=== PATIENT | female | born 1995 | race Caucasian/White ===

== ENCOUNTER → 2022-06-23 | Outpatient (REF) | LOC: M LABSMTC 11:28 | PROVIDERS: ATTEND Family Medicine | DX: Z20.822 Contact with and (suspected) exposure to COVID-19 (principal) ==

== ENCOUNTER → 2022-06-26 | Outpatient (REF) | LOC: M LABSMTC 10:39 | PROVIDERS: ATTEND Family Medicine | DX: Z11.52 Encounter for screening for COVID-19 (principal) ==

== ENCOUNTER → 2022-11-09 | Outpatient (REF) | LOC: M LABSMTC 08:41 | PROVIDERS: ATTEND Family Medicine | DX: Z11.52 Encounter for screening for COVID-19 (principal) ==

== ENCOUNTER → 2023-11-09 | Outpatient (CLI) | payer OTHER ==
[2023-11-09 17:25] LABS: FREE T4 1.12 NG/DL (0.89-1.76); THYROID STIMULATING HORMONE 1.29 uIU/ML (0.55-4.78)
== END ==
LOC: M LAB 16:19
PROVIDERS: ATTEND Nurse Practitioner Adult Health
DX: E03.9 Hypothyroidism, unspecified (principal)

== ENCOUNTER → 2024-02-23 | Outpatient (CLI) | payer OTHER ==
[2024-02-23 18:25] LABS: HEMATOCRIT 34.8 % (36.0-47.0); HEMOGLOBIN 12.1 g/dl (12.0-15.5); MEAN CORPUSCULAR HEMOGLOBIN 31.2 pg (27.0-33.0); MEAN CORPUSCULAR HGB CONC 34.8 g/dl (32.0-36.5); MEAN CORPUSCULAR VOLUME 89.7 fl (80.0-96.0); PLATELET COUNT, AUTOMATED 290 10^3/uL (150-450); RED BLOOD COUNT 3.88 10^6/uL (4.00-5.40); WHITE BLOOD COUNT 13.1 10^3/uL (4.0-10.0)
[2024-02-23 18:54] LABS: FREE T4 1.08 NG/DL (0.89-1.76)
[2024-02-23 18:55] LABS: THYROID STIMULATING HORMONE 2.676 uIU/ML (0.55-4.78)
[2024-02-23 19:19] LABS: HIV 1&2 SCREEN NEGATIVE (NEGATIVE)
[2024-02-23 19:28] LABS: HEPATITIS C VIRUS ABY INDEX < 0.02 INDEX (<0.8)
[2024-02-23 21:03] LABS: GC DNA AMPLIFICATION NEGATIVE (NEGATIVE)
== END ==
LOC: M PLALAB 15:09
PROVIDERS: ATTEND Advanced Practice Midwife
DX: O99.280 Endocrine, nutritional and metabolic diseases complicating pregnancy, unspecified trimester (principal); Z3A.00 Weeks of gestation of pregnancy not specified

== ENCOUNTER → 2024-04-03 | Outpatient (CLI) | payer OTHER ==
[2024-04-03 12:53] LABS: FREE T4 0.96 NG/DL (0.89-1.76); THYROID STIMULATING HORMONE 3.602 uIU/ML (0.55-4.78)
== END ==
LOC: M PLALAB 09:52
PROVIDERS: ATTEND Obstetrics & Gynecology
DX: Z34.82 Encounter for supervision of other normal pregnancy, second trimester (principal); Z3A.00 Weeks of gestation of pregnancy not specified

== ENCOUNTER → 2024-05-01 | Outpatient (CLI) | payer OTHER ==
[2024-05-01 18:26] LABS: FREE T4 0.99 NG/DL (0.89-1.76); THYROID STIMULATING HORMONE 3.182 uIU/ML (0.55-4.78)
== END ==
LOC: M PLALAB 15:36
PROVIDERS: ATTEND Obstetrics & Gynecology
DX: O99.282 Endocrine, nutritional and metabolic diseases complicating pregnancy, second trimester (principal)

== ENCOUNTER → 2024-05-03 | Outpatient (CLI) | payer OTHER | LOC: M WHC 14:38 | PROVIDERS: ATTEND Obstetrics & Gynecology | DX: Z34.82 Encounter for supervision of other normal pregnancy, second trimester (principal) ==

== ENCOUNTER → 2024-06-07 | Outpatient (CLI) | payer OTHER ==
[2024-06-07 13:50] LABS: HEMATOCRIT 33.1 % (36.0-47.0); MEAN CORPUSCULAR HEMOGLOBIN 30.5 pg (27.0-33.0); MEAN CORPUSCULAR HGB CONC 33.2 g/dl (32.0-36.5); MEAN CORPUSCULAR VOLUME 91.7 fl (80.0-96.0); PLATELET COUNT, AUTOMATED 246 10^3/uL (150-450); RED BLOOD COUNT 3.61 10^6/uL (4.00-5.40); WHITE BLOOD COUNT 14.1 10^3/uL (4.0-10.0)
[2024-06-07 13:55] LABS: GLUCOSE CHALLENGE TEST 1 HOUR 107 MG/DL (LESS THAN 140)
[2024-06-07 13:59] LABS: THYROID STIMULATING HORMONE 3.207 uIU/ML (0.55-4.78)
[2024-06-07 14:00] LABS: FREE T4 1.04 NG/DL (0.89-1.76)
[2024-06-07 14:30] LABS: HIV 1&2 SCREEN NEGATIVE (NEGATIVE)
[2024-06-07 14:38] LABS: HEPATITIS C VIRUS ABY INDEX < 0.02 INDEX (<0.8)
[2024-06-07 15:20] LABS: GC DNA AMPLIFICATION NEGATIVE (NEGATIVE)
== END ==
LOC: M PLALAB 10:00
PROVIDERS: ATTEND Obstetrics & Gynecology
DX: O99.282 Endocrine, nutritional and metabolic diseases complicating pregnancy, second trimester (principal); Z3A.25 25 weeks gestation of pregnancy; E03.9 Hypothyroidism, unspecified

== ENCOUNTER → 2024-07-05 | Outpatient (CLI) | payer OTHER | LOC: M RAD 15:08 | PROVIDERS: ATTEND Obstetrics & Gynecology | DX: O13.3 Gestational [pregnancy-induced] hypertension without significant proteinuria, third trimester (principal); Z3A.30 30 weeks gestation of pregnancy ==

== ENCOUNTER → 2024-07-05 | Outpatient (CLI) | payer OTHER ==
[2024-07-05 16:29] LABS: HEMATOCRIT 31.2 % (36.0-47.0); HEMOGLOBIN 10.6 g/dl (12.0-15.5); MEAN CORPUSCULAR HEMOGLOBIN 30.5 pg (27.0-33.0); MEAN CORPUSCULAR VOLUME 89.7 fl (80.0-96.0); PLATELET COUNT, AUTOMATED 233 10^3/uL (150-450); RED BLOOD COUNT 3.48 10^6/uL (4.00-5.40); WHITE BLOOD COUNT 13.2 10^3/uL (4.0-10.0)
[2024-07-05 16:58] LABS: FREE T4 0.96 NG/DL (0.89-1.76); THYROID STIMULATING HORMONE 2.16 uIU/ML (0.55-4.78)
== END ==
LOC: M LAB 15:45
PROVIDERS: ATTEND Obstetrics & Gynecology
DX: O99.280 Endocrine, nutritional and metabolic diseases complicating pregnancy, unspecified trimester (principal); E03.9 Hypothyroidism, unspecified; Z3A.00 Weeks of gestation of pregnancy not specified

== ENCOUNTER → 2024-07-09 | Outpatient (CLI) | payer OTHER | LOC: M PLALAB 15:55 | PROVIDERS: ATTEND Obstetrics & Gynecology | DX: O99.019 Anemia complicating pregnancy, unspecified trimester (principal); Z3A.00 Weeks of gestation of pregnancy not specified; D64.9 Anemia, unspecified ==

== ENCOUNTER → 2024-08-02 | Outpatient (CLI) | payer OTHER | LOC: M WHC 07:54 | PROVIDERS: ATTEND Obstetrics & Gynecology | DX: O13.3 Gestational [pregnancy-induced] hypertension without significant proteinuria, third trimester (principal); Z3A.34 34 weeks gestation of pregnancy ==

== ENCOUNTER → 2024-08-13 | Outpatient (REF) | payer OTHER | LOC: M SFHCWAGY 17:06 | PROVIDERS: ATTEND Obstetrics & Gynecology | DX: Z36.85 Encounter for antenatal screening for Streptococcus B (principal); Z3A.35 35 weeks gestation of pregnancy ==

== ENCOUNTER 2024-08-19 10:43 | Inpatient (IN) | payer OTHER ==
[2024-08-19] VITALS (7 sets, daily range): BP systolic 113–140; BP diastolic 64–84
[~2024-08-19] VITALS: Ht 157.5 cm; Wt 86.5 kg
[2024-08-19] MEDS ORDERED: PRENTAB9 PO (12:44)
[2024-08-19] MEDS ORDERED: LEVO50TA5 PO (12:44)
[2024-08-19] MEDS ORDERED: LABE100T40 PO (12:44)
[2024-08-19] MEDS ORDERED: ASPI81CH33 PO (12:44)
[2024-08-19] MEDS ORDERED: HOME MED LIST COMPLETE! XX SCH (13:55)
[2024-08-19 14:35] LABS: HEMATOCRIT 35.5 % (36.0-47.0); HEMOGLOBIN 11.9 g/dl (12.0-15.5); MEAN CORPUSCULAR HEMOGLOBIN 29.8 pg (27.0-33.0); MEAN CORPUSCULAR HGB CONC 33.5 g/dl (32.0-36.5); PLATELET COUNT, AUTOMATED 250 10^3/uL (150-450); RED BLOOD COUNT 3.99 10^6/uL (4.00-5.40); WHITE BLOOD COUNT 11.5 10^3/uL (4.0-10.0)
[2024-08-19] MEDS ORDERED: OXYTOCIN INJ 10UNITS/ML 1ML VIAL IM PRN (15:10)
[2024-08-19] MEDS ORDERED: TRANEXAMIC ACID INJection 1,000 MG in NS 100 ML IV PRN (15:10)
[2024-08-19] MEDS ORDERED: OXYTOCIN DRIP 30 UNITS in IV 1 EA IV PRN (15:10)
[2024-08-19] MEDS ORDERED: LIDOCAINE 1% MDV 20ML VIAL INFIL PRN (15:10)
[2024-08-19] MEDS ORDERED: CARBOPROST TROMETHAMINE 250 MCG/ML AMP IM PRN (15:10)
[2024-08-19 15:38] LABS: URIC ACID 3.6 MG/DL (3.1-7.8)
[2024-08-19 15:40] LABS: LDH LACTATE DEHYDROGENASE 230 U/L (120-246)
[2024-08-19 15:41] LABS: ALT/SGPT 11 U/L (7.0-40); AST/SGOT 14 U/L (<34); BILIRUBIN,TOTAL 0.3 MG/DL (0.3-1.2); CREATININE FOR GFR 0.41 MG/DL (0.55-1.30); GLOMERULAR FILTRATION RATE > 60.0 (>60)
[2024-08-19 16:14] LABS: CREATININE,RANDOM URINE 18.2 MG/DL
[2024-08-19 16:16] LABS: TOTAL PROTEIN,RANDOM URINE < 6.0 MG/DL (0.0-14.0)
[2024-08-19] MEDS: miSOPROStol 50MCG 1/2 TABLET PO SCH (16:18)
[2024-08-19] MEDS: LABETALOL 100MG TAB PO SCH (21:03)
[2024-08-20] VITALS (33 sets, daily range): BP systolic 108–143; BP diastolic 57–92; O2SAT 97
[2024-08-20] MEDS: LEVOTHYROXINE 75MCG TABLET (0.075MG) PO SCH (06:26)
[2024-08-20 10:04] LABS: HEMATOCRIT 36.6 % (36.0-47.0); HEMOGLOBIN 12.2 g/dl (12.0-15.5); MEAN CORPUSCULAR HEMOGLOBIN 29.8 pg (27.0-33.0); MEAN CORPUSCULAR HGB CONC 33.3 g/dl (32.0-36.5); MEAN CORPUSCULAR VOLUME 89.5 fl (80.0-96.0); PLATELET COUNT, AUTOMATED 243 10^3/uL (150-450); RED BLOOD COUNT 4.09 10^6/uL (4.00-5.40); WHITE BLOOD COUNT 15.9 10^3/uL (4.0-10.0)
[2024-08-20] MEDS: OXYTOCIN DRIP 30 UNITS in IV 1 EA IV SCH (10:25)
[2024-08-20] MEDS: LR 1,000 ML IV SCH (10:26)
[2024-08-20] MEDS ORDERED: ONDANSETRON 4MG 2ML VIAL IV PRN (13:30)
[2024-08-20] MEDS ORDERED: NALOXONE INJ 0.4MG/1ML VIAL IV PRN (13:30)
[2024-08-20] MEDS ORDERED: ePHEDrine SULFATE 25 MG/5 ML(5MG/ML) SYRINGE IVP PRN (13:30)
[2024-08-20] MEDS ORDERED: EPIDURAL/PCA KEYS XX PRN (13:30)
[2024-08-20] MEDS ORDERED: diphenhydrAMINE 50MG/ML VIAL IV PRN (13:30)
[2024-08-20] MEDS: FENTANYL/ROPIVACAINE/NACL BAG 100 ML EPIDURAL SCH (14:10)
[2024-08-20] MEDS: LR 500 ML IV PRN (14:35)
[2024-08-20] MEDS ORDERED: ANUSOL HC CREAM 30GM TOP PRN (22:35)
[2024-08-20] MEDS ORDERED: RHOGAM 300MCG (1500IU) INJ IM SCH (22:35)
[2024-08-20] MEDS ORDERED: OXYTOCIN DRIP 30 UNITS in IV 1 EA IV SCH (22:35)
[2024-08-20] MEDS ORDERED: MOM 30ML SUSPENSION UDC PO PRN (22:35)
[2024-08-20] MEDS ORDERED: METHYLERGONOVINE MALEATE 0.2 MG TAB PO PRN (22:35)
[2024-08-20] MEDS ORDERED: CALCIUM CARBONATE 500 MG CHEW U/D PO PRN (22:35)
[2024-08-20] MEDS ORDERED: IBUPROFEN 600MG TAB PO PRN (22:35)
[2024-08-20] MEDS: DIBUCAINE 1% OINTMENT 30GM TOP PRN (22:58)
[2024-08-20] MEDS: ACETAMINOPHEN 325 MG TAB PO PRN (22:59)
[2024-08-21] MEDS: ACETAMINOPHEN 500 MG TAB PO PRN (04:41)
[2024-08-21 06:00] VITALS: BP 127/68; O2SAT 98
[2024-08-21] MEDS: PRENATAL VITAMINS CHEWABLE TABLET PO SCH (09:15)
[2024-08-21] MEDS: IBUPROFEN 800 MG TAB PO PRN (13:47)
[2024-08-21] MEDS: DOCUSATE SODIUM 100MG CAPSULE PO PRN (15:56)
[2024-08-21 18:00] VITALS: BP 127/66; O2SAT 99
[2024-08-21 20:50] VITALS: BP 130/77
[2024-08-22 06:30] VITALS: BP 126/74; O2SAT 98
[2024-08-22 08:41] VITALS: BP 126/77
[2024-08-22] MEDS: MEASLES,MUMPS,RUBELLA VACCINE INJ (MMR-II) SC.IMMUN ONE (09:00)
[2024-08-22] MEDS ORDERED: ACET-683 PO (09:44)
[2024-08-22] MEDS ORDERED: COLA100C5 PO (09:44)
[2024-08-22] MEDS ORDERED: IBUP-1022 PO (09:44)
== END 2024-08-22 13:20 | disposition home or self-care (01) | DRG 807 ==
LOC: M LDI 12:05 → M OBS 08-20 21:27
PROVIDERS: ADMIT Advanced Practice Midwife; ATTEND Obstetrics & Gynecology
PROC: 3E0P7GC Introduction of Other Therapeutic Substance into Female Reproductive, Via Natural or Artificial Opening (ICD-10-PCS; 2024-08-19)
PROC: 10E0XZZ Delivery of Products of Conception, External Approach (ICD-10-PCS; principal; 2024-08-20)
PROC: 0HQ9XZZ Repair Perineum Skin, External Approach (ICD-10-PCS; 2024-08-20)
DX: O41.03X0 Oligohydramnios, third trimester, not applicable or unspecified (principal); Z37.0 Single live birth; Z3A.36 36 weeks gestation of pregnancy; O13.4 Gestational [pregnancy-induced] hypertension without significant proteinuria, complicating childbirth; Z79.82 Long term (current) use of aspirin; Z79.890 Hormone replacement therapy; O70.0 First degree perineal laceration during delivery

== ENCOUNTER → 2024-08-30 | Outpatient (REF) | payer OTHER ==
[~2024-08-30] MED LIST: ACET-683 PO; ASPI81CH33 PO; COLA100C5 PO; IBUP-1022 PO; LABE100T40 PO; LEVO50TA5 PO; PRENTAB9 PO
== END ==
LOC: M SFHCWAGY 12:33
PROVIDERS: ATTEND Advanced Practice Midwife
DX: R30.0 Dysuria (principal)